=== PATIENT | male | born 1940 | race Caucasian/White ===

== ENCOUNTER 2021-04-24 10:09 | Emergency (ER) | payer OTHER, SELFPAY ==
[~2021-04-24] VITALS: Ht 172.7 cm; Wt 86.2 kg
[2021-04-24 14:15] LABS: BASOPHILS % (AUTO) 0.4 % (0.0-2.0); EOSINOPHILS # (AUTO) 0.2 K/uL (0.0-0.4); EOSINOPHILS % (AUTO) 3.1 % (0.0-4.0); HEMATOCRIT 41.5 % (36-54); HEMOGLOBIN 14.2 g/dL (14.0-18.0); LYMPHOCYTES # (AUTO) 1.4 K/uL (1.0-5.5); MEAN CORPUSCULAR HEMOGLOBIN 32 pg (27-31); MEAN CORPUSCULAR HGB CONC 34 % (32-36); MEAN CORPUSCULAR VOLUME 92 fL (79.0-98.0); MONOCYTES # (AUTO) 0.7 K/uL (0.0-1.0); MONOCYTES % (AUTO) 11.5 % (1.7-9.3); NEUTROPHILS # (AUTO) 3.8 K/uL (1.8-7.7); PLATELET COUNT (AUTO) 194 K/uL (130-430); RED CELL DISTRIBUTION WIDTH 16.1 % (9.0-15.0); WHITE BLOOD COUNT (AUTO) 6.1 K/uL (4.8-10.8)
[2021-04-24 14:29] LABS: ANION GAP 9 (5-15); CALCIUM 9.4 mg/dL (8.4-11.0); CHLORIDE 97 mmol/L (98-107); CREATININE 1.33 mg/dL (0.55-1.30); GLUCOSE 131 mg/dL (70-99); POTASSIUM 4.7 mmol/L (3.5-5.1); SODIUM SERUM 135 mmol/L (136-145); UREA NITROGEN, BLOOD 31 mg/dL (8-21)
[2021-04-24 14:44] LABS: ALANINE AMINOTRANSFERASE 37 U/L (12-78); ALBUMIN 3.7 g/dL (3.4-4.8); TOTAL BILIRUBIN 0.3 mg/dL (0.0-1.0)
[2021-04-24 14:58] LABS: ASPARTATE AMINOTRANSFERASE 25 U/L (10-37)
--- NOTE | 2021-04-24 15:45 | NUR ---
ER at bedside examining patient.
[2021-04-24 16:08] VITALS: BP_SYST 149
== END 2021-04-24 16:08 | disposition home or self-care (01) ==
LOC: SED 10:09
DX: R55 Syncope and collapse (principal)
CPT/HCPCS: 36415; 70450-TC; 71045; 76376; 80053; 82550; 83605; 84484; 85025; 93005; 99285